=== PATIENT | female | born 1990 | race Two or more races ===

== ENCOUNTER 2022-02-12 10:29 | Inpatient (IN) | payer OTHER ==
[~2022-02-12] VITALS: Ht 154.9 cm; Wt 79.3 kg
[2022-02-12 18:30] VITALS: BP 126/68
[2022-02-12] MEDS ORDERED: MORPHINE SULFATE INJ 2 MG/ml SYRG IV PRN (19:00)
[2022-02-12] MEDS ORDERED: ACETAMINOPHEN 325 MG TAB PO PRN (19:00)
[2022-02-12] MEDS ORDERED: ONDANSETRON HCL 4 MG/2 ML VIAL IV PRN (19:00)
[2022-02-12] MEDS ORDERED: DOCUSATE SOD 100 MG CAP PO PRN (19:00)
[2022-02-12] MEDS ORDERED: HYDROcodone-ACET 5/325MG TAB PO PRN (19:00)
[2022-02-12] MEDS ORDERED: TEMAZEPAM 15 MG CAP PO PRN (19:00)
[2022-02-12 20:20] LABS: Basophils # (auto) 0 10 ^3/uL (0-0.2); Basophils % (auto) 0.4 % (0.0-2.0); Eosinophils # (auto) 0.1 10 ^3/uL (0-0.8); Eosinophils % (auto) 0.7 % (0.0-7.0); Hematocrit 40.8 % (36.0-46.0); Hemoglobin 13.9 g/dL (12.2-16.2); Lymphocytes # (auto) 1.8 10 ^3/uL (0.4-5.4); Lymphocytes % (auto) 19.9 % (10.0-50.0); Mean Corpuscular Volume 88.2 fL (80.0-100.0); Monocytes # (auto) 0.5 10 ^3/uL (0-1.3); Monocytes % (auto) 5.8 % (0.0-12.0); Neutrophils # (auto) 6.6 10 ^3/uL (1.6-8.6); Neutrophils % (auto) 73.2 % (37.0-80.0); Red Blood Cells 4.62 10^6/uL (4.0-5.20); Red Cell Distribution Width 12.7 % (11.8-14.3)
[2022-02-12] MEDS ORDERED: PIPERACILLIN-TAZOB 3.375GM 100 ML IV ONE (20:30)
[2022-02-12 20:32] LABS: Calcium 8.1 mg/dL (8.5-10.1); Potassium 3.5 mmol/L (3.5-5.1)
[2022-02-12 20:37] LABS: BUN/Creatinine Ratio 14.3; Bilirubin, Direct 0.2 mg/dL (0-0.2); Total Protein 6.6 g/dL (6.4-8.2)
[2022-02-12 20:41] LABS: INR 0.97 (0.9-1.15); Partial Thromboplastin Time 25.2 sec (24.6-33.4)
[2022-02-12 20:43] LABS: Beta HCG, Quantitative < 1 mlU/mL (1-3); Thyroid Stimulating Hormone 1.48 uIU/mL (0.358-3.74)
[2022-02-12] MEDS: SODIUM CHLORIDE 0.9% 1,000 ML IV SCH (20:53)
[2022-02-12 20:59] LABS: Urine Blood 2+ /uL (Negative); Urine Specific Gravity 1.021 (1.001-1.035)
[2022-02-12 22:00] VITALS: BP 117/57
[2022-02-13 00:35] VITALS: BP 126/68
[2022-02-13 05:00] VITALS: BP 113/55
[2022-02-13] MEDS: PIPERACILLIN-TAZOB 3.375GM 100 ML IV SCH ×2 (05:06→13:30)
[2022-02-13 08:30] VITALS: BP 132/74
[2022-02-13] MEDS ORDERED: ceFAZolin 1GM/50ML 100 ML IV ONE (10:15)
[2022-02-13] MEDS ORDERED: LIDOCAINE 1%-Mpf/Epinephrine 1:200,000 ONE (10:39)
[2022-02-13] MEDS ORDERED: BUPIVACAINE 0.25% INJ 50ML VIAL ONE (10:40)
[2022-02-13] MEDS ORDERED: LIDOCAINE 2% JELLY 11ml (GLYDO) ONE (10:42)
[2022-02-13] MEDS ORDERED: fentaNYL CITRATE 100 MCG/2 ML VL ONE (10:43)
[2022-02-13] MEDS ORDERED: MEPERIDINE HCL (50 MG/ML) 1 ML VIAL ONE (10:43)
[2022-02-13] MEDS ORDERED: MIDAZOLAM HCL 2MG/2ML 2ml VIAL (1mg/ml) ONE (10:43)
[2022-02-13] MEDS ORDERED: DexAMETHasone SOD PHOS 10MG/1ML VIAL INJ ONE (10:52)
[2022-02-13] MEDS ORDERED: PROPOFOL 10 MG/ML 20 ML IV ONE (10:52)
[2022-02-13] MEDS ORDERED: ROCURONIUM 10MG/ML 10ML VIAL IV ONE (10:53)
[2022-02-13] MEDS ORDERED: MORPHINE SULFATE 4 MG/ML SYR/VIAL IV PRN (11:30)
[2022-02-13] MEDS ORDERED: KETOROLAC TROMETH 30 MG/ML 1ML VIAL IV ONE (11:30)
[2022-02-13] MEDS ORDERED: LABETALOL HCL 5 MG/ML 4ML SYRINGE IV PRN (11:30)
[2022-02-13] MEDS ORDERED: ePHEDrine SULFATE 50 MG/ML AMP IV PRN (11:30)
[2022-02-13] MEDS ORDERED: ONDANSETRON HCL 4 MG/2 ML VIAL IV PRN (11:30)
[2022-02-13] MEDS ORDERED: MIDAZOLAM HCL 2MG/2ML 2ml VIAL (1mg/ml) IV PRN (11:30)
[2022-02-13] MEDS ORDERED: SUGAMMADEX 200mg/2ml Vial (100MG/ML) IV ONE (11:43)
[2022-02-13] MEDS: HYDROmorphone HCL 2 MG/ML VL/or syr IV PRN ×2 (12:20→12:35)
[2022-02-13 13:10] VITALS: BP 116/68
[2022-02-13] MEDS: SODIUM CHLORIDE 0.9% 1,000 ML IV SCH (13:30)
[2022-02-13] MEDS ORDERED: ONDANSETRON HCL 4 MG/2 ML VIAL IV ONE (16:28)
[2022-02-13] MEDS ORDERED: PHENYLEPHRINE HCL 10 MG/ML VL IV ONE (16:28)
[2022-02-13] MEDS ORDERED: ERGOCALCIFEROL 50,000 UNIT(1.25MG) CAP PO SCH (17:00)
== END 2022-02-13 16:29 | disposition home or self-care (01) | DRG 419 ==
LOC: CENTRAL 18:47 → UNDOADMIN 18:47
PROVIDERS: ADMIT Internal Medicine; ATTEND Internal Medicine
PROC: 0WUF0JZ Supplement Abdominal Wall with Synthetic Substitute, Open Approach (ICD-10-PCS; 2022-02-13)
PROC: 0WPFXJZ Removal of Synthetic Substitute from Abdominal Wall, External Approach (ICD-10-PCS; 2022-02-13)
PROC: 0FT44ZZ Resection of Gallbladder, Percutaneous Endoscopic Approach (ICD-10-PCS; principal; 2022-02-13 10:46)
DX: K80.00 Calculus of gallbladder with acute cholecystitis without obstruction (principal); K76.0 Fatty (change of) liver, not elsewhere classified; Z20.822 Contact with and (suspected) exposure to COVID-19; E55.9 Vitamin D deficiency, unspecified; K43.2 Incisional hernia without obstruction or gangrene; F17.200 Nicotine dependence, unspecified, uncomplicated; E66.9 Obesity, unspecified; Z68.33 Body mass index [BMI] 33.0-33.9, adult
CPT/HCPCS: 36415; 71046; 78226; 80053; 81003; 82248; 82306; 83036; 83735; 84443; 84702; 85025; 85610; 85730; 86850; 86900; 86901; 87426; G0378; J0690; J1100; J2250; J2405; J2543; J2704; J3490